=== PATIENT | female | born 2000 | race Two or more races ===

== ENCOUNTER 2024-01-19 18:45 | Emergency (ER) | payer MEDICAID ==
[~2024-01-19] VITALS: Ht 165.1 cm; Wt 88.4 kg
[2024-01-19 22:10] VITALS: BP 145/92; PULSE 91; RESP 15; O2SAT 100
== END 2024-01-19 22:22 | disposition home or self-care (01) ==
LOC: ER 18:45
DX: O20.0 Threatened abortion (principal); R10.2 Pelvic and perineal pain; Z3A.01 Less than 8 weeks gestation of pregnancy
CPT/HCPCS: 36415; 76801; 76817; 84702

== ENCOUNTER 2024-06-19 10:59 | Observation (INO) | payer MEDICAID ==
[2024-06-19 11:35] LABS: Urine WBC None Seen /hpf (0 - 5)
[2024-06-19 11:52] LABS: Basophils # (auto) 0 10 ^3/uL (0-0.2); Basophils % (auto) 0.2 % (0.0-2.0); Eosinophils # (auto) 0.1 10 ^3/uL (0-0.8); Hemoglobin 10.6 g/dL (12.2-16.2); Monocytes # (auto) 0.7 10 ^3/uL (0-1.3); Neutrophils # (auto) 8.7 10 ^3/uL (1.6-8.6); Neutrophils % (auto) 77.4 % (37.0-80.0)
[2024-06-19 11:55] LABS: Eosinophils % (auto) 1.3 % (0.0-7.0); Hematocrit 32.3 % (36.0-46.0); Lymphocytes # (auto) 1.7 10 ^3/uL (0.4-5.4); Lymphocytes % (auto) 14.8 % (10.0-50.0); Mean Corpuscular Hemoglobin 25.2 pg (28.0-32.0); Mean Corpuscular Hgb Conc. 32.8 g/dL (32.0-36.0); Mean Corpuscular Volume 76.8 fL (80.0-100.0); Monocytes % (auto) 6.3 % (0.0-12.0); Nucleated Red Blood Cells % 0.1 %; Red Blood Cells 4.21 10^6/uL (4.0-5.20); Red Cell Distribution Width 14.9 % (11.8-14.3); White Blood Cell 11.3 10^3/uL (4.4-10.8)
[2024-06-19 12:07] LABS: INR 0.99 (0.9-1.15); Partial Thromboplastin Time 26.8 SEC (24.5-34.5); Prothrombin Time 10.5 sec (9.3-11.8)
[2024-06-19 12:09] LABS: Creatinine, Urine 148.24 mg/dL (30.0-125.0); Urine Protein/Creatinine Ratio 0.23
[2024-06-19 12:09] LABS: Albumin 3.7 g/dL (3.2-4.8); Alkaline Phosphatase 106 U/L (46-116); Anion Gap 9 (5-15); Aspartate Aminotransferase < 8 U/L (13-40); BUN/Creatinine Ratio 14.9 (10.0-20.0); Blood Urea Nitrogen 7 mg/dL (9-23); Calcium 9.3 mg/dL (8.7-10.4); Carbon Dioxide 24 mmol/L (20-30); Chloride 106 mmol/L (98-107); Glucose 88 mg/dL (74-106); Potassium 3.9 mmol/L (3.5-5.1); Sodium 139 mmol/L (136-145); Uric Acid 3.9 mg/dL (3.1-7.8)
[2024-06-19 12:10] LABS: Bilirubin, Total 0.2 mg/dL (0.2-1.0); Total Protein 6.5 g/dL (5.7-8.2)
[2024-06-19 12:18] LABS: Alanine Aminotransferase 9 U/L (7-40)
[2024-06-19 12:21] LABS: Urine Bacteria FEW /hpf (None Seen); Urine Blood Negative /uL (Negative); Urine Clarity Clear (Clear); Urine Color Yellow (Yellow); Urine Mucus FEW (None Seen); Urine Protein, UAD 1+ (Negative); Urine Specific Gravity 1.026 (1.001-1.035); Urine Urobilinogen Normal (Negative)
[2024-06-19] MEDS ORDERED: PREN-96 PO (12:59)
== END 2024-06-19 13:12 | disposition home or self-care (01) ==
LOC: LDRP 10:59 → UNDOADMOB 10:59 → LDRP 11:06
PROVIDERS: ADMIT Obstetrics & Gynecology; ATTEND Obstetrics & Gynecology
DX: O36.8130 Decreased fetal movements, third trimester, not applicable or unspecified (principal); Z3A.31 31 weeks gestation of pregnancy; Z86.2 Personal history of diseases of the blood and blood-forming organs and certain disorders involving the immune mechanism
CPT/HCPCS: 36415; 59025; 76805; 80053; 81001; 81002; 82570; 84156; 84550; 85025; 85610; 85730; 94760; G0378

== ENCOUNTER 2024-08-19 23:40 | Inpatient (IN) | payer MEDICAID ==
[~2024-08-19] VITALS: Ht 167.6 cm; Wt 97.1 kg
[~2024-08-19 23:40] MED LIST: PREN-96 PO
[2024-08-20] VITALS (17 sets, daily range): BP systolic 103–127; BP diastolic 58–81; PULSE 88–105; RESP 16–18; TEMP 97.8–98.4; O2SAT 93–100
[2024-08-20] MEDS: NIFEdipine 10 MG CAP PO PRN (00:35)
[2024-08-20] MEDS: LACTATED RINGER'S 1,000 ML IV ONE ×2 (00:41→05:15)
[2024-08-20] MEDS: TERBUTALINE SULFATE 1 MG/ML 1ML VIAL SC SCH (02:27)
[2024-08-20] MEDS: LACTATED RINGER'S 1,000 ML IV SCH ×2 (02:35→13:15)
[2024-08-20 02:54] LABS: Basophils # (auto) 0 10 ^3/uL (0-0.2); Basophils % (auto) 0.2 % (0.0-2.0); Eosinophils # (auto) 0 10 ^3/uL (0-0.8); Lymphocytes # (auto) 2.2 10 ^3/uL (0.4-5.4); Monocytes # (auto) 0.8 10 ^3/uL (0-1.3)
[2024-08-20 02:56] LABS: Eosinophils % (auto) 0.3 % (0.0-7.0); Hematocrit 29.9 % (36.0-46.0); Hemoglobin 9.9 g/dL (12.2-16.2); Lymphocytes % (auto) 16.7 % (10.0-50.0); Mean Corpuscular Hemoglobin 23.2 pg (28.0-32.0); Mean Corpuscular Hgb Conc. 33.1 g/dL (32.0-36.0); Mean Corpuscular Volume 70.2 fL (80.0-100.0); Monocytes % (auto) 6.2 % (0.0-12.0); Neutrophils # (auto) 9.9 10 ^3/uL (1.6-8.6); Neutrophils % (auto) 76.6 % (37.0-80.0); Platelet Count (auto) 281 10^3/uL (140-450); Red Blood Cells 4.26 10^6/uL (4.0-5.20); Red Cell Distribution Width 17.2 % (11.8-14.3)
[2024-08-20 03:19] LABS: Alanine Aminotransferase 11 U/L (7-40); Alkaline Phosphatase 194 U/L (46-116); Anion Gap 10 (5-15); Aspartate Aminotransferase 10 U/L (13-40); BUN/Creatinine Ratio 11.5 (10.0-20.0); Blood Urea Nitrogen 7 mg/dL (9-23); Calcium 9.2 mg/dL (8.7-10.4); Carbon Dioxide 21 mmol/L (20-31); Chloride 105 mmol/L (98-107); Glucose 121 mg/dL (74-106); Potassium 3.7 mmol/L (3.5-5.1); Sodium 136 mmol/L (136-145)
[2024-08-20 03:20] LABS: Bilirubin, Total 0.3 mg/dL (0.2-1.0); Total Protein 6.7 g/dL (5.7-8.2)
[2024-08-20 04:36] LABS: INR 1.01 (0.9-1.15); Partial Thromboplastin Time 25.6 SEC (24.5-34.5); Prothrombin Time 10.7 sec (9.3-11.8)
[2024-08-20 05:50] LABS: Urine Bacteria None Seen /hpf (None Seen)
[2024-08-20 06:15] LABS: Urine Blood 3+ /uL (Negative); Urine Clarity Clear (Clear); Urine Color Yellow (Yellow); Urine Mucus FEW (None Seen); Urine Protein, UAD 1+ (Negative); Urine Specific Gravity 1.022 (1.001-1.035); Urine Urobilinogen Normal (Negative); Urine WBC 8 /hpf (0 - 5)
[2024-08-20 06:41] LABS: Protein, Urine 39.6 mg/dL (1-14)
[2024-08-20 06:43] LABS: Amphetamine Screen, Urine Neg (NEGATIVE); Barbiturate Scree,Urine Neg (NEGATIVE); Benzodiazephine Screen, Urine Neg (NEGATIVE)
[2024-08-20 06:44] LABS: Cannabinoid Screen, Urine Neg (NEGATIVE); Cocaine Screen, Urine Neg (NEGATIVE); Creatinine, Urine 125.79 mg/dL (30.0-125.0); Opiate Scree,Urine Neg (NEGATIVE); Phencyclidine Screen, Urine Neg (NEGATIVE); Urine Protein/Creatinine Ratio 0.31
[2024-08-20] MEDS: ceFAZolin 2 GM/D5W50ml 50 ML IV ONE (06:54)
[2024-08-20] MEDS ORDERED: HYDR-4072 PO (07:08)
[2024-08-20] MEDS ORDERED: DOCU-94 PO (07:08)
[2024-08-20] MEDS ORDERED: IBUP-1456 PO (07:08)
[2024-08-20] MEDS ORDERED: ONDANSETRON HCL 4 MG/2 ML VIAL IV PRN ×2 (07:15→09:45)
[2024-08-20] MEDS: LACT. RINGERS/OXYTOCIN 20UNITS 1,000 ML IV ONE (07:15)
[2024-08-20] MEDS ORDERED: ceFAZolin 1GM/50ML 50 ML IV SCH ×2 (07:15→09:30)
[2024-08-20] MEDS ORDERED: MORPHINE SULF PF 5 MG/10 ML VIAL ONE (07:21)
[2024-08-20] MEDS ORDERED: fentaNYL CITRATE 100 MCG/2 ML VL ONE (07:21)
[2024-08-20] MEDS ORDERED: ONDANSETRON HCL 4 MG/2 ML VIAL ONE (07:22)
[2024-08-20] MEDS ORDERED: oxyTOCIN 10 UNIT/ML 10ML VIAL ONE (07:22)
[2024-08-20] MEDS ORDERED: DexAMETHasone SOD PHOS 10MG/1ML VIAL INJ ONE (07:22)
[2024-08-20] MEDS ORDERED: ceFAZolin 1GM VL ONE (08:19)
[2024-08-20] MEDS ORDERED: SODIUM CHLORIDE LOCK 10 ML ONE (08:30)
[2024-08-20] MEDS ORDERED: PHENYLEPHRINE HCL 10 MG/ML VL ONE (08:30)
[2024-08-20] MEDS ORDERED: CARBOPROST TROMETHAMINE 250 MCG/1ML VIAL IM ONE (08:49)
[2024-08-20] MEDS ORDERED: diphenhdrAMINE HCL 50 MG/1 ML VL IV PRN (09:45)
[2024-08-20] MEDS ORDERED: NALOXONE HCL 0.4 MG/ML VIAL IV PRN (09:45)
[2024-08-20] MEDS ORDERED: HYDROmorphone HCL 2 MG/ML VL/or syr IV PRN (09:45)
[2024-08-20] MEDS: NALBUPHINE HCL 10 MG/1ml INJECTION IV ONE (09:45)
[2024-08-20] MEDS ORDERED: DIPHENOXYLATE W/ATROPINE 2.5 MG TAB ONE (10:12)
[2024-08-20] MEDS: GUM (CHEWING) 1 GUM CHEW CHEW ONE (10:24)
[2024-08-20] MEDS: DIPHENOXYLATE W/ATROPINE 2.5 MG TAB PO PRN (10:26)
[2024-08-20] MEDS: ceFAZolin 1GM/50ML 50 ML IV SCH (14:32)
[2024-08-20] MEDS: ACETAMINOPHEN IV 1000 MG/100ML (10MG/ML) IV PRN (15:01)
[2024-08-20 22:00] LABS: Basophils # (auto) 0 10 ^3/uL (0-0.2); Basophils % (auto) 0.1 % (0.0-2.0); Eosinophils # (auto) 0 10 ^3/uL (0-0.8); White Blood Cell 18.6 10^3/uL (4.4-10.8)
[2024-08-20 22:02] LABS: Eosinophils % (auto) 0.1 % (0.0-7.0); Hematocrit 28.1 % (36.0-46.0); Hemoglobin 9.2 g/dL (12.2-16.2); Lymphocytes # (auto) 1.8 10 ^3/uL (0.4-5.4); Lymphocytes % (auto) 9.7 % (10.0-50.0); Mean Corpuscular Hemoglobin 22.7 pg (28.0-32.0); Mean Corpuscular Hgb Conc. 32.8 g/dL (32.0-36.0); Mean Corpuscular Volume 69.2 fL (80.0-100.0); Monocytes # (auto) 1.1 10 ^3/uL (0-1.3); Monocytes % (auto) 5.9 % (0.0-12.0); Neutrophils # (auto) 15.6 10 ^3/uL (1.6-8.6); Neutrophils % (auto) 84.2 % (37.0-80.0); Platelet Count (auto) 286 10^3/uL (140-450); Red Blood Cells 4.06 10^6/uL (4.0-5.20)
[2024-08-21] VITALS (16 sets, daily range): BP systolic 91–130; BP diastolic 53–81; PULSE 88–106; RESP 16–18; TEMP 98–98.9; O2SAT 93–99
[2024-08-21 09:42] LABS: Basophils # (auto) 0 10 ^3/uL (0-0.2); Eosinophils # (auto) 0 10 ^3/uL (0-0.8); Nucleated Red Blood Cells % 0.1 %; Platelet Count (auto) 259 10^3/uL (140-450)
[2024-08-21 09:46] LABS: Basophils % (auto) 0.1 % (0.0-2.0); Eosinophils % (auto) 0.2 % (0.0-7.0); Hematocrit 27.7 % (36.0-46.0); Lymphocytes % (auto) 16.5 % (10.0-50.0); Mean Corpuscular Hemoglobin 22.8 pg (28.0-32.0); Mean Corpuscular Hgb Conc. 32.6 g/dL (32.0-36.0); Mean Corpuscular Volume 70.2 fL (80.0-100.0); Monocytes % (auto) 8.5 % (0.0-12.0); Neutrophils # (auto) 9.2 10 ^3/uL (1.6-8.6); Neutrophils % (auto) 74.7 % (37.0-80.0); Red Blood Cells 3.95 10^6/uL (4.0-5.20); Red Cell Distribution Width 16.8 % (11.8-14.3); White Blood Cell 12.3 10^3/uL (4.4-10.8)
[2024-08-21] MEDS ORDERED: HYDROcodone-ACET 5/325MG TAB PO PRN ×2 (10:15)
[2024-08-21] MEDS: IBUPROFEN 800 MG TAB PO PRN (11:51)
[2024-08-21] MEDS: SIMETHICONE 80 MG CHEWABLE TABLET PO SCH (12:10)
[2024-08-21] MEDS: DOCUSATE SOD 100 MG CAP PO SCH (21:35)
[2024-08-22 02:38] VITALS: BP 125/78; PULSE 102; RESP 18; TEMP 98.1; O2SAT 97
[2024-08-22 07:05] VITALS: BP 135/86; PULSE 102; RESP 18; TEMP 98.4; O2SAT 98
[2024-08-22 09:07] LABS: RPR Non Reactive (Non Reactive)
[2024-08-22] MEDS: DOCUSATE CALCIUM 240 MG CAP PO SCH (09:41)
[2024-08-22] MEDS: TETANUS-DIPTH-ACEL PERTUSSIS 0.5ML SYR Tdap IM ONE (09:42)
[2024-08-22 11:27] VITALS: BP 118/72; PULSE 93; RESP 18; TEMP 97.4; O2SAT 98
[2024-08-22 14:45] VITALS: BP 139/84; PULSE 92; RESP 18; TEMP 98.8; O2SAT 96
== END 2024-08-22 15:32 | disposition home or self-care (01) | DRG 539 ==
LOC: LDRP 23:40 → OBSVTOIN 08-20 04:20 → LDRP 08-20 08:37
PROVIDERS: ADMIT Obstetrics & Gynecology; ATTEND Obstetrics & Gynecology
PROC: 0UL50CZ Occlusion of Right Fallopian Tube with Extraluminal Device, Open Approach (ICD-10-PCS; 2024-08-20)
PROC: 10D00Z1 Extraction of Products of Conception, Low, Open Approach (ICD-10-PCS; principal; 2024-08-20 08:13)
DX: O34.211 Maternal care for low transverse scar from previous cesarean delivery (principal); N83.8 Other noninflammatory disorders of ovary, fallopian tube and broad ligament; Z37.0 Single live birth; Z3A.37 37 weeks gestation of pregnancy; Z30.2 Encounter for sterilization; O34.83 Maternal care for other abnormalities of pelvic organs, third trimester
CPT/HCPCS: 36415; 59025; 80053; 80307; 81001; 81002; 82570; 84156; 84550; 85025; 85384; 85610; 85730; 86592; 86780; 86850; 86900; 86901; 90715; 94760; 94762; 96360; 96361; 96365; 96366; 96372; G0378; J0131; J0690; J1100; J2405; J2590